=== PATIENT | male | born 1990 | race Caucasian/White ===

== ENCOUNTER 2024-02-11 14:17 | Outpatient (AMB) | payer OTHER, SELFPAY ==
--- NOTE | 2024-02-11 14:29 | MHC.PC.OV ---
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 Ramesh Nix, Merissa Serrato, Ponce Last and colleagues, with an educational baldo from [employer]. Physical exam (Primary Care) Tobacco/Smoking Status: Tobacco use Status Tobacco use date assessed 01/23/21 01/24/22 08:59 Patient Tobacco Use Status Former Tobacco user 01/24/22 09:25 Thrive Assessment: Date of Thrive Assessment Date Thrive assessed 01/24/22 01/24/22 08:59 Coding
[2024-02-11 14:32] VITALS: BP 150/100; PULSE 103; O2SAT 99; BMI 25.0
--- NOTE | 2024-02-11 14:32 | A.OFFPC_ITS ---
Vital Signs 02/11/24 14:32 Height 6 ft 2 in Weight 195 lb 2 oz BMI 25.0 BP 150/100 H Blood Pressure Location Lt brachial Position Sitting Pulse 103 H Pulse Source Pulse Oximeter Pulse Oximetry (%) 99 Oxygen Delivery Method Room Air Intake Visit Reasons: PE/medication F/U Allergies cephalexin [Keflex] Allergy (Unknown, Verified 02/11/24 14:39) hives From Keflex Allergy (Unknown, Uncoded 02/11/24 14:39) UNKNOWN Medication List - Last Reconciled 02/11/24 by Catalino Cleveland PA-C sertraline (Zoloft) 50 mg PO DAILY 30 days Tobacco use date assessed: 01/23/21 HPI PE/medication F/U HPI Details Patient is a 33-year-old male here today for annual physical. Patient past medical history significant for elevated liver enzymes, H/o of alcohol use disorder, generalized anxiety disorder.. Generalized anxiety disorder: Previously on sertraline 50 mg which was helpful for his anxiety. He reports as of late has been having more anxiety in somewhat of a low mood. He is interested in restarting SSRI therapy. He does mention having some sexual side effect with sertraline 50 mg. .. History of elevated liver enzymes: Was likely secondary to the amount of alcohol intake he was consuming at the time. He is drastically reduced his alcohol intake. Will recheck liver enzymes to ensure normal. 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 1. Little interest or pleasure in doing things: several days 2. Feeling down, depressed, or hopeless: several days 3. Trouble falling or staying asleep, or sleeping too much: several days 4. Feeling tired or having little energy: several days 5. Poor appetite or overeating: not at all 6. Feeling bad about yourself - or that you are a failure or have let yourself or your family down: several days 7. Trouble concentrating on things, such as reading the newspaper or watching television: several days 8. Moving or speaking so slowly that other people could have noticed. Or the opposite - being so fidgety or restless that you have been moving around a lot more than usual: not at all 9. Thoughts that you would be better off or of hurting yourself in some way: not at all Total score: 6 Depression Screening Interpretation: Positive Depression Screening Follow-up: Existing condition and New Medication prescribed Depression Screening Done: Yes 99443 - PHQ-9 Billing: Yes Source: Developed by Drs. Ramesh Nix, Merissa Serrato, Ponce Last and colleagues, with an educational baldo from [employer]. Thrive Questionnaire Date Thrive assessed: 02/11/24 I am a: Patient What is your living situation today?: I have a steady place to live Within the past 12 months, did the food you bought not last and you didn't have the money to get more?: Never true Within the past 12 months, did you worry whether your food would run out before you got money to buy more?: Never true Do you have trouble paying for medicines?: No Do you have trouble getting transportation to medical appointments?: No Do you have trouble paying your heating and electricity bill?: No Do you have trouble taking care of your child, family member or friend?: No Do you have trouble with day-to-day activities such as bathing, preparing meals, shopping, managing finances, etc.?: No Are you currently unemployed and looking for a job?: No Are you interested in more education?: No Please select the resources that you would like help with: None Currently or been in a relationship where the following occur: No concerns reported THRIVE Score: 0 AUDIT C Alcohol Use Questionnaire (AUDIT-C) 1. How often do you have a drink containing alcohol?: Monthly or less 2. How many drinks containing alcohol do you have on a typical day when you are drinking?: 3 or 4 3. How often do you have six or more drinks on one occasion?: Never Total Score: 2 SAMUEL-7 AMB Questionnaire SAMUEL-7 Date SAMUEL - 7 assessed: 02/11/24 Feeling nervous, anxious, or on edge: 0 = Not at all Not being able to stop or control worryin = Several days Worrying too much about different things: 1 = Several days Trouble relaxin = Several days Being so restless that it is hard to sit still: 0 = Not at all Becoming easily annoyed or irritable: 2 = More than half the days Feeling afraid as if something awful might happen: 0 = Not at all Total SAMUEL-7 score (0-4 normal; 5-9 mild; 10-14 moderate; 15-21 severe): 5 Source: Developed by Drs. Ramesh Nix, Merissa Serrato, Ponce Last and colleagues, with an educational baldo from [employer]. SAMUEL-7 Assessment Billing SAMUEL-7 Assessment Tool: SAMUEL-7 Assessment 00936 Review of Systems Const Denies body aches, Denies chills, Denies excessive sweating, Denies fatigue, Denies fever(s) and Denies headache(s) Eyes Denies blurry vision ENT Denies dysphagia, Denies vertigo, Denies dizziness, Denies headache(s), Denies hearing loss and Denies tinnitus Card Denies chest pain, Denies chest pain with activity, Denies syncope, Denies irregular heart rhythm and Denies dyspnea Resp Denies chest congestion, Denies cough, Denies hemoptysis, Denies dyspnea and Denies wheezing GI Denies abdominal pain, Denies melena, Denies hematochezia, Denies coffee ground emesis, Denies dysphagia, Denies diarrhea, Denies nausea and Denies vomiting Denies difficulty urinating, Denies dysuria, Denies urinary frequency, Denies urinary hesitancy and Denies urinary urgency Musc Denies arthralgias, Denies limited range of motion, Denies muscle cramps and D enies muscle weakness Skin/Breast Denies rash and Denies skin ulcer Neuro Denies Abnormal speech present, Denies confusion, Denies vertigo, Denies diz ziness, Denies syncope, Denies headache(s), Denies memory loss and Denies seizure-like activity Psych Denies anxiety, Denies confusion, Denies depression, Denies memory loss, Denies panic attacks and Denies paranoia Endo Denies excessive sweating, Denies fatigue, Denies flushing, Denies polydipsia and Denies polyuria Aller/Immun Denies wheezing Physical exam (Primary Care) Vital Signs: Last Vital Signs Pulse 103 H 02/11/24 14:32 BP 150/100 H 02/11/24 14:32 Pulse Ox 99 02/11/24 14:32 Oxygen Delivery Method Room Air 02/11/24 14:32 BMI result Body Mass Index 25.0 Tobacco/Smoking Status: Tobacco use Status Tobacco use date assessed 01/23/21 02/11/24 14:38 Patient Tobacco Use Status Former Tobacco user 02/11/24 14:38 PHQ-9: PHQ-9 Score PHQ-9: Total score 6 02/11/24 14:46 Depression Screening Interpretation: Positive Depression Screening Follow-up: Existing condition and New Medication prescribed Thrive Assessment: Date of Thrive Assessment Date Thrive assessed 02/11/24 02/11/24 14:38 Currently or been in a relationship where the following occur: No concerns reported Const General: cooperative, comfortable, no acute distress, alert and awake; No confusion Orientation/consciousness: oriented to person, oriented to place, patient oriented x3 and No confusion HENMT Head: Yes normocephalic Ears: external ears normal and TM's normal bilaterally Face and sinus: No sinus tenderness Mouth: Normal oral and palatal mucosa present and tongue normal Teeth and gingiva: dentition normal and gingiva normal Throat: Yes posterior oropharynx normal, Yes tonsils normal and Yes uvula midline Eyes Conjunctivae: conjunctivae normal Sclerae: sclerae normal Pupils: Equal, round and reactive pupils present EOM: EOMs intact bilaterally Direct Ophthalmoscopy: No no photophobia Neck Neck: Yes no lymphadenopathy, No tender and Yes no JVD Thyroid: Thyroid normal Carotids: no bruits Chest Chest palpation & inspection: no tenderness Resp Effort & Inspection: normal respiratory effort, no audible wheezes, not labored and no stridor Auscultation: no crackles, no rales, no rhonchi and no wheezes Cardio Jugular venous distension: no JVD Rate: regular rate, not bradycardic and not tachycardic Rhythm: regular rhythm Bruits: no carotid bruits Peripheral pulses: Peripheral pulses 2+ throughout GI Inspection: Yes normal to inspection, No abdominal wall ecchymosis and No visible herniation Palpation (GI): Soft to palpation, nontender, no guarding, not rigid and No hepatosplenomegaly present Auscultation: normoactive bowel sounds General: Yes no CVA tenderness Back/Spine/Pelvis Back: no CVA tenderness and No back tenderness Cervical Spine: cervical ROM normal Thoracic/Lumbar Spine: thoracic and lumbar spine normal to inspection, straight leg raise negative bilaterally, No thoraco-lumbar ROM limited and No lumbar spinal tenderness Skin Lesions: no lesions Rashes: no rashes Wounds: no wounds Neuro General: oriented to person, oriented to place, patient oriented x3, CN's II-XI intact bilaterally and No confusion Cranial nerves: Yes Equal, round and reactive pupils present and Yes Normal accommodation reflex present Cognition (Neuro): normal cognition Speech: No Abnormal speech present Gait exam (Neuro): Normal gait present Motor exam (neuro): 5/5 motor strength present throughout Extrem Right upper extremity: full ROM; no cyanosis Left upper extremity: full ROM; no cyanosis Right lower extremity: no edema Left lower extremity: no edema Psych Appearance: grossly normal Mental Status: mental status grossly normal Affect: normal affect Attitude: cooperative Thought process: Normal thought process present Assessment and Plan Assessment & Plan (1) Annual physical exam: Code(s): Z00.00 - Encounter for general adult medical examination without abnormal findings (2) Elevated LFTs: Code(s): R79.89 - Other specified abnormal findings of blood chemistry Plan: Patient has a history of elevated LFTs likely secondary to the amount of alcohol he was consuming at the time. Will recheck liver enzymes and if elevated will consider ultrasound. (3) SAMUEL (generalized anxiety disorder): Code(s): F41.1 - Generalized anxiety disorder Plan: Patient's SAMUEL-7 score positive for anxiety which has been existing condition for him. He was on Zoloft 50 mg which had been helpful for him. He reports some sexual side effects with Zoloft. He would like to try a new SSRI Will implement fluoxetine 10 mg and up titrate per response. Will follow-up in 4 weeks to evaluate the effectiveness of the medication. (4) Screening for diabetes mellitus (DM): Code(s): Z13.1 - Encounter for screening for diabetes mellitus (5) Borderline high cholesterol: Code(s): E78.9 - Disorder of lipoprotein metabolism, unspecified Plan: Most recent lipid panel showing borderline high cholesterol at 02:02. Will recheck fasting lipid panel. Orders: Orders Lipid Panel Today E78.9 - Disorder of lipoprotein metabolism, unspecified Comprehensive [place]. Panel Fast 02/11/24 Z13.1 - Encounter for screening for diabetes mellitus Medications: New fluoxetine 10 mg PO DAILY 30 caps 1RF F41.1 - Generalized anxiety disorder Discontinued sertraline (Zoloft) Discontinued Reason: Doctor's Order 50 mg PO DAILY 30 days 30 tabs 3RF F41.1 - Generalized anxiety disorder Coding Level of Care Code Est Pt Prev Care 18-39y(19887) Diagnoses Annual physical exam Z00.00 Elevated LFTs R79.89 SAMUEL (generalized anxiety disorder) F41.1 Screening for diabetes mellitus (DM) Z13.1 Borderline high cholesterol E78.9 Additional Codes SAMUEL-7 Assessment Billing - SAMUEL-7 Assessment Tool: SAMUEL-7 Assessment [id number] ([id number])
== END 2024-02-11 14:52 | disposition home or self-care (01) ==
PROVIDERS: PCP Physician Assistant; Visit Provider Physician Assistant
DX: Z00.00 Encounter for general adult medical examination without abnormal findings (principal); R79.89 Other specified abnormal findings of blood chemistry; F41.1 Generalized anxiety disorder; Z13.1 Encounter for screening for diabetes mellitus; E78.9 Disorder of lipoprotein metabolism, unspecified
CPT/HCPCS: 96127; 99395

== ENCOUNTER 2025-02-16 15:02 | Outpatient (AMB) | payer OTHER, SELFPAY ==
--- NOTE | 2025-02-16 15:10 | A.OFFPC_ITS ---
Vital Signs 02/16/25 15:11 Height 6 ft 2 in Weight 193 lb 4 oz BMI 24.8 BP 136/90 H Blood Pressure Location Lt brachial Position Sitting Pulse 84 Pulse Source Pulse Oximeter Pulse Oximetry (%) 98 Oxygen Delivery Method Room Air Intake Visit Reasons: ANNUAL Correspondence Transcriber Required: No Accompanied by: Self / Same As Patient Allergies cephalexin (Keflex) Allergy (Unknown, Verified 02/16/25 15:33) hives From Keflex Allergy (Unknown, Uncoded 02/16/25 15:33) UNKNOWN Medication List - Last Reconciled 02/16/25 by Catalino Cleveland PA-C fluoxetine 20 mg PO DAILY 90 days naltrexone 50 mg PO DAILY 30 days Tobacco use date assessed: 02/16/25 Dental Screening Dental Screen Date: 02/16/25 Did you have a dental visit in the last 12 months?: Yes Did you have a dental problem in the last 6 months where you did not have access to dental care?: No Was dental information given to patient?: No HPI ANNUAL HPI Details Patient is a 34-year-old male here today for annual physical. Patient past medical history significant for elevated liver enzymes, H/o of alcohol use disorder, generalized anxiety disorder.. .. Alcohol use disorder: He reports his alcohol consumption has gotten bad as of late, he is in need of completely quitting. He has naltrexone and will be more consistent with the use of it. We did discuss addiction treatment counselor evaluation though he would like to hold off on this. Vivitrol could be an option for him for medication compliance. Generalized anxiety disorder: Continues on fluoxetine 20 mg though seems not to be too consistent with the med. His samuel 7 score positive today in office. He is considering seeing a mental health therapist. .. History of elevated liver enzymes: Was likely secondary to the amount of alcohol intake he was consuming at the time. He is drastically reduced his alcohol intake. Will recheck liver enzymes to ensure normal. Vaccines: Up-to-date with COVID vaccine, up-to-date with tetanus vaccine, PFSH Family History (Updated 02/16/25 @ 15:37 by Catalino Cleveland PA-C) Father HTN (hypertension) Mother Skin cancer Social History (Updated 02/16/25 @ 15:38 by Catalino Cleveland PA-C) Housing: House Alcohol intake: current Alcohol intake frequency: a few times a week Alcohol type: beer and other Patient Tobacco Use Status: Former Tobacco user Second Hand Smoke Exposure: No service: No Current occupational status: employed Current occupation: [employer] - GENER[employer] Questionnaire PHQ-9 Over the last 2 weeks, how often have you been bothered by any of the following problems? 1. Little interest or pleasure in doing things: several days 2. Feeling down, depressed, or hopeless: several days 3. Trouble falling or staying asleep, or sleeping too much: several days 4. Feeling tired or having little energy: several days 5. Poor appetite or overeating: not at all 6. Feeling bad about yourself - or that you are a failure or have let yourself or your family down: several days 7. Trouble concentrating on things, such as reading the newspaper or watching television: several days 8. Moving or speaking so slowly that other people could have noticed. Or the opposite - being so fidgety or restless that you have been moving around a lot more than usual: not at all 9. Thoughts that you would be better off or of hurting yourself in some way: not at all Total score: 6 Depression Screening Interpretation: Positive Depression Screening Follow-up: Existing condition and New Medication prescribed Depression Screening Done: Yes 14938 - PHQ-9 Billing: Yes Source: Developed by Drs. Ramesh Nix, Merissa Serrato, Ponce Last and colleagues, with an educational baldo from [employer]. Thrive Questionnaire Date Thrive assessed: 02/16/25 I am a: Patient What is your living situation today?: I have a steady place to live Within the past 12 months, did the food you bought not last and you didn't have the money to get more?: Never true Within the past 12 months, did you worry whether your food would run out before you got money to buy more?: Never true Do you have trouble paying for medicines?: No Do you have trouble getting transportation to medical appointments?: No Do you have trouble paying your heating and electricity bill?: No Do you have trouble taking care of your child, family member or friend?: No Do you have trouble with day-to-day activities such as bathing, preparing meals, shopping, managing finances, etc.?: No Are you currently unemployed and looking for a job?: No Are you interested in more education?: No Please select the resources that you would like help with: None Currently or been in a relationship where the following occur: No concerns reported THRIVE Score: 0 AUDIT C Alcohol Use Questionnaire (AUDIT-C) 1. How often do you have a drink containing alcohol?: 2-3 times a week 2. How many drinks containing alcohol do you have on a typical day when you are drinking?: 5 or 6 3. How often do you have six or more drinks on one occasion?: Weekly Total Score: 8 SAMUEL-7 AMB Questionnaire SAMUEL-7 Date ASMUEL - 7 assessed: 02/16/25 Feeling nervous, anxious, or on edge: 3 = Nearly every day Not being able to stop or control worryin = Nearly every day Worrying too much about different things: 3 = Nearly every day Trouble relaxin = Nearly every day Being so restless that it is hard to sit still: 3 = Nearly every day Becoming easily annoyed or irritable: 1 = Several days Feeling afraid as if something awful might happen: 0 = Not at all Total SAMUEL-7 score (0-4 normal; 5-9 mild; 10-14 moderate; 15-21 severe): 16 Source: Developed by Drs. Ramesh Nix, Merissa Serrato, Ponce Last and colleagues, with an educational baldo from [employer]. SAMUEL-7 Assessment Billing SAMUEL-7 Assessment Tool: SAMUEL-7 Assessment 62205 Review of Systems Const Denies body aches, Denies chills, Denies excessive sweating, Denies fatigue, Denies fever(s) and Denies headache(s) Eyes Denies blurry vision ENT Denies dysphagia, Denies vertigo, Denies dizziness, Denies headache(s), Denies hearing loss and Denies tinnitus Card Denies chest pain, Denies chest pain with activity, Denies syncope, Denies irregular heart rhythm and Denies dyspnea Resp Denies chest congestion, Denies cough, Denies hemoptysis, Denies dyspnea and Denies wheezing GI Denies abdominal pain, Denies melena, Denies hematochezia, Denies coffee ground emesis, Denies dysphagia, Denies diarrhea, Denies nausea and Denies vomiting Denies difficulty urinating, Denies dysuria, Denies urinary frequency, Denies urinary hesitancy and Denies urinary urgency Musc Denies arthralgias, Denies limited range of motion, Denies muscle cramps and Denies muscle weakness Skin/Breast Denies rash and Denies skin ulcer Neuro Denies Abnormal speech present, Denies confusion, Denies vertigo, Denies dizziness, Denies syncope, Denies headache(s), Denies memory loss and Denies seizure-like activity Psych Denies anxiety, Denies confusion, Denies depression, Denies memory loss, Denies panic attacks and Denies paranoia Endo Denies excessive sweating, Denies fatigue, Denies flushing, Denies polydipsia and Denies polyuria Aller/Immun Denies wheezing Physical exam (Primary Care) Vital Signs: Last Vital Signs Pulse 84 02/16/25 15:11 BP 136/90 H 02/16/25 15:11 Pulse Ox 98 02/16/25 15:11 Oxygen Delivery Method Room Air 02/16/25 15:11 BMI result Body Mass Index 24.8 Tobacco/Smoking Status: Tobacco use Status Tobacco use date assessed 02/16/25 02/16/25 15:15 Patient Tobacco Use Status Former Tobacco user 02/16/25 15:15 PHQ-9: PHQ-9 Score PHQ-9: Total score 6 02/16/25 15:15 Depression Screening Interpretation: Positive Depression Screening Follow-up: Existing condition and New Medication prescribed Thrive Assessment: Date of Thrive Assessment Date Thrive assessed 02/16/25 02/16/25 15:15 Currently or been in a relationship where the following occur: No concerns reported Const General: cooperative, comfortable, no acute distress, alert and awake; No confusion Orientation/consciousness: oriented to person, oriented to place, patient oriented x3 and No confusion HENMT Head: Yes normocephalic Ears: external ears normal and TM's normal bilaterally Face and sinus: No sinus tenderness Mouth: Normal oral and palatal mucosa present and tongue normal Teeth and gingiva: dentition normal and gingiva normal Throat: Yes posterior oropharynx normal, Yes tonsils normal and Yes uvula midline Eyes Conjunctivae: conjunctivae normal Sclerae: sclerae normal Pupils: Equal, round and reactive pupils present EOM: EOMs intact bilaterally Direct Ophthalmoscopy: No no photophobia Neck Neck: Yes no lymphadenopathy, No tender and Yes no JVD Thyroid: Thyroid normal Carotids: no bruits Chest Chest palpation & inspection: no tenderness Resp Effort & Inspection: normal respiratory effort, no audible wheezes, not labored and no stridor Auscultation: no crackles, no rales, no rhonchi and no wheezes Cardio Jugular venous distension: no JVD Rate: regular rate, not bradycardic and not tachycardic Rhythm: regular rhythm Bruits: no carotid bruits Peripheral pulses: Peripheral pulses 2+ throughout GI Inspection: Yes normal to inspection, No abdominal wall ecchymosis and No visible herniation Palpation (GI): Soft to palpation, nontender, no guarding, not rigid and No hepatosplenomegaly present Auscultation: normoactive bowel sounds General: Yes no CVA tenderness Back/Spine/Pelvis Back: no CVA tenderness and No back tenderness Cervical Spine: cervical ROM normal Thoracic/Lumbar Spine: thoracic and lumbar spine normal to inspection, straight leg raise negative bilaterally, No thoraco-lumbar ROM limited and No lumbar spinal tenderness Skin Lesions: no lesions Rashes: no rashes Wounds: no wounds Neuro General: oriented to person, oriented to place, patient oriented x3, CN's II-XI intact bilaterally and No confusion Cranial nerves: Yes Equal, round and reactive pupils present and Yes Normal accommodation reflex present Cognition (Neuro): normal cognition Speech: No Abnormal speech present Gait exam (Neuro): Normal gait present Motor exam (neuro): 5/5 motor strength present throughout Extrem Right upper extremity: full ROM; no cyanosis Left upper extremity: full ROM; no cyanosis Right lower extremity: no edema Left lower extremity: no edema Psych Appearance: grossly normal Mental Status: mental status grossly normal Affect: normal affect Attitude: cooperative Thought process: Normal thought process present Coding Level of Care Code Est Pt Prev Care 18-39y(74477) Diagnoses Annual physical exam Z00.00 SAMUEL (generalized anxiety disorder) F41.1 Alcohol use disorder F10.90 Borderline high cholesterol E78.9 Additional Codes SAMUEL-7 Assessment Billing - SAMUEL-7 Assessment Tool: SAMUEL-7 Assessment 73847 ([id number]) PHQ-9 - 69162 - PHQ-9 Billing: Yes ([id number]) Assessment & Plan Assessment & Plan (1) Annual physical exam: Code(s): Z00.00 - Encounter for general adult medical examination without abnormal findings Category: Medical Plan: as per HPI (2) SAMUEL (generalized anxiety disorder): Code(s): F41.1 - Generalized anxiety disorder Category: Medical Plan: Patient's SAMUEL-7 score positive for anxiety which has been existing condition for him. He will continue his current dose of fluoxetine 20 mg and considerations has been made to increased dose of anxiety stays high. He will try to completely stopped drinking and stay sober. (3) Alcohol use disorder: Category: Medical Plan: As per HPI patient reports his drinking has become a problem and needs to completely quit. He has naltrexone and will be consistent with daily use of this medication. We did discuss trying Vivitrol through with the addiction treatment center though he will hold off on this for now (4) Borderline high cholesterol: Code(s): E78.9 - Disorder of lipoprotein metabolism, unspecified Category: Medical Plan: Patient has a history of borderline high cholesterol, will work on lifestyle and dietary modifications. Will recheck his lipid panel to ensure stable. Orders: Orders Complete Blood Count no Diff Today Z13.1 - Encounter for screening for diabetes mellitus Comprehensive [place]. Panel Fast Today Z13.1 - Encounter for screening for diabetes mellitus Lipid Panel Today E78.9 - Disorder of lipoprotein metabolism, unspecified
[2025-02-16 15:11] VITALS: BP 136/90; PULSE 84; O2SAT 98; BMI 24.8
== END 2025-02-16 15:59 | disposition home or self-care (01) ==
LOC: HO.HMCH 15:04
PROVIDERS: PCP Physician Assistant; Visit Provider Physician Assistant
DX: Z00.00 Encounter for general adult medical examination without abnormal findings (principal); F41.1 Generalized anxiety disorder; F10.90 Alcohol use, unspecified, uncomplicated; E78.9 Disorder of lipoprotein metabolism, unspecified

== ENCOUNTER → 2025-02-16 15:02 | Outpatient (BNVA) | payer OTHER, SELFPAY | PROVIDERS: PCP Physician Assistant; Visit Provider Physician Assistant | DX: Z00.00 Encounter for general adult medical examination without abnormal findings (principal); F41.1 Generalized anxiety disorder; F10.90 Alcohol use, unspecified, uncomplicated; E78.9 Disorder of lipoprotein metabolism, unspecified | CPT/HCPCS: 96127 ==

== ENCOUNTER 2025-05-19 08:48 | Outpatient (REF) | payer OTHER, SELFPAY ==
[2025-05-19 11:52] LABS: Hematocrit 41.7 % (42.0-52.0); Hemoglobin 14.4 g/dl (14.0-18.0); Mean Corpuscular HGB Conc 34.5 g/dl (31.0-36.0); Mean Corpuscular Hemoglobin 29.6 pg (27.0-33.0); Mean Corpuscular Volume 85.6 fL (80.0-98.0); NRBC Abs Auto 0.000 X10*3/uL (0.0-0.012); NRBC Pct Auto 0.0 /100WBC (0.0-0.2); Platelet Count 265 X10*3/uL (160-400); Red Blood Count 4.87 X10*6/uL (4.60-5.80); White Blood Count 4.1 X10*3/uL (4.8-10.8)
[2025-05-19 14:48] LABS: Alanine Aminotransferase 28 U/L (0-40); Albumin Level 4.7 g/dL (3.5-5.0); Alkaline Phosphatase 61 U/L (39-117); Anion Gap 9 (12-20); Aspartate Amino Transferase 25 U/L (5-37); Blood Urea Nitrogen 6 mg/dL (9-16); Calcium 9.2 mg/dL (8.4-10.2); Carbon Dioxide 30 mmol/L (22-29); Chloride 107 mmol/L (96-108); Cholesterol 108 mg/dL (<200); Estimated Glomerular Filt Rate > 60; HDL Cholesterol 35 mg/dL (>40); Potassium 3.7 mmol/L (3.3-5.1); Sodium 142 mmol/L (135-145); Total Protein 7.1 g/dL (6.5-8.0); Triglycerides 49 mg/dL (<150)
== END 2025-05-19 08:49 | disposition home or self-care (01) ==
LOC: HO.WFDLDS 08:48
PROVIDERS: Visit Provider Physician Assistant
DX: Z13.1 Encounter for screening for diabetes mellitus (principal); E78.9 Disorder of lipoprotein metabolism, unspecified
CPT/HCPCS: 36415; 80053; 80061; 85027